=== PATIENT | female | born 1970 | race African-American/Black ===

== ENCOUNTER 2016-11-06 14:31 | Emergency (ER) | payer SELFPAY ==
[~2016-11-06] VITALS: Ht 152.4 cm; Wt 69.2 kg
[2016-11-06] MEDS ORDERED: TYLENOL WITH C1 EACH PO (17:01)
[2016-11-06 18:24] VITALS: BP 125/67
== END 2016-11-06 18:25 | disposition home or self-care (01) ==
LOC: EME 14:31
PROC: 2W3QX1Z Immobilization of Right Lower Leg using Splint (ICD-10-PCS; principal; 2016-11-06)
DX: S92.001A Unspecified fracture of right calcaneus, initial encounter for closed fracture (principal); V47.5XXA Car driver injured in collision with fixed or stationary object in traffic accident, initial encounter; Y92.410 Unspecified street and highway as the place of occurrence of the external cause; F17.200 Nicotine dependence, unspecified, uncomplicated
CPT/HCPCS: 73610; 73700; 99281; 99284

== ENCOUNTER 2016-11-07 14:09 | Emergency (ER) | payer OTHER ==
[~2016-11-07] VITALS: Ht 152.4 cm; Wt 69.5 kg
[~2016-11-07 14:09] MED LIST: TYLENOL WITH C1 EACH PO
[2016-11-07 15:34] VITALS: BP 122/88
== END 2016-11-07 15:35 | disposition home or self-care (01) ==
LOC: EME 14:09
DX: S92.001D Unspecified fracture of right calcaneus, subsequent encounter for fracture with routine healing (principal); F17.200 Nicotine dependence, unspecified, uncomplicated
CPT/HCPCS: 99281; 99283